=== PATIENT | male | born 1980 | race Caucasian/White ===

== ENCOUNTER 2024-04-23 12:26 | Inpatient (IN) | payer SELFPAY ==
[~2024-04-23] VITALS: Ht 193 cm; Wt 102.8 kg
[2024-04-23] MEDS ORDERED: iohexol 350MG/ML 100ml bottle IV ONE (12:46)
[2024-04-23 12:58] LABS: BASOPHILS % (AUTO) 0.3 % (0-1); EOSINOPHILS % (AUTO) 0 % (0-6); HEMATOCRIT 48.6 % (42.0-52.0); HEMOGLOBIN 16.6 g/dl (14.0-17.9); LYMPHOCYTES # (AUTO) 1.2 X10'3 (1.1-4.8); LYMPHOCYTES % (AUTO) 12.2 % (21-51); MEAN CORPUSCULAR HGB CONC 34.1 g/dL (33.0-36.5); MEAN CORPUSCULAR VOLUME 87.8 FL (78-98); MEAN PLATELET VOLUME 7.5 FL (7.4-10.4); MONOCYTES # (AUTO) 0.5 X10'3 (0-0.9); MONOCYTES % (AUTO) 4.7 % (2-12); NEUTROPHILS # (AUTO) 8.2 X10'3 (1.8-7.7); NEUTROPHILS % (AUTO) 82.8 % (42-75); PLATELET COUNT 290 X10'3 (140-440); RED BLOOD COUNT 5.54 X10'6 (4.70-6.10); RED CELL DISTRIBUTION WIDTH 13.1 % (11.5-14.5); WHITE BLOOD COUNT 9.9 X10'3 (4.5-11.0)
[2024-04-23 13:10] LABS: ANION GAP 9 (8-16); BLOOD UREA NITROGEN 10 MG/DL (7-18); CALCIUM 8.9 MG/DL (8.5-10.1); CHLORIDE 109 MMOL/L (99-107); CREATININE 0.91 MG/DL (0.60-1.10); GLUCOSE 142 MG/DL (70-104); POTASSIUM 4.8 MMOL/L (3.5-5.1); SODIUM 143 MMOL/L (135-145); TOTAL CARBON DIOXIDE 24.6 MMOL/L (24-32); eCRCL 126 ML/MIN; eGFR 90 ML/MIN
[2024-04-23 13:12] LABS: APTT 25 SECONDS (22-32); INR 1.1 INR; PROTHROMBIN TIME 11.1 SECONDS (9.0-12.0)
[2024-04-23] MEDS: dexamethasone 4mg/ml inj IV ONE (14:30)
[2024-04-23] MEDS: ringers solution, lacted 1,000 ML IV ONE ×2 (14:46→16:11)
[2024-04-23] MEDS: dexamethasone 4mg/ml inj IV SCH (14:46)
[2024-04-23] MEDS: ketorolac trometh 30MG/ML vial 30 MG/ML VIAL IV ONE (14:47)
[2024-04-23] MEDS: OLANZapine **IM** 10 mg inj. IM ONE (14:53)
[2024-04-23] MEDS: acetaminophen 325mg tablet PO ONE (16:11)
[2024-04-23] MEDS: valproate sod inj 500 MG in normal saline 50ml IV soln 50 ML IV ONE (16:54)
[2024-04-23] MEDS: magnesium sulf-water 2g/50mL 50 ML IV ONE (16:55)
[2024-04-23] MEDS ORDERED: ondansetron/PF 4mg/2ml inj IV PRN (18:05)
[2024-04-23] MEDS ORDERED: acetaminophen 325mg tablet PO PRN ×2 (18:05)
[2024-04-23] MEDS ORDERED: diphenhydrAMINE 50 mg/ml inj IV PRN (18:05)
[2024-04-23] MEDS ORDERED: acetaminophen 650mg rectal suppository RC PRN (18:05)
[2024-04-23] MEDS ORDERED: magnesium hydroxide 30ml (MOM) UD suspension PO PRN (18:05)
[2024-04-23] MEDS ORDERED: diphenhydrAMINE 25mg capsule PO PRN (18:05)
[2024-04-23] MEDS ORDERED: morphine 2 MG/ML inj. syringe IV PRN ×2 (18:05)
[2024-04-23] MEDS ORDERED: bisacodyl 10mg suppository rectal RC PRN (18:05)
[2024-04-23] MEDS ORDERED: ondansetron 4mg rapidly disintigrating tab PO PRN (18:05)
[2024-04-23] MEDS ORDERED: mag hydrox/Alum hydrox/simeth 30ml oral suspension PO PRN (18:05)
[2024-04-23] MEDS ORDERED: HYDROcodone/acetaminophen 5mg/325mg tablet PO PRN (18:05)
[2024-04-23 18:09] LABS: URINE AMPHETAMINE SCREEN NEGATIVE (Neg); URINE BARBITUATE SCREEN NEGATIVE (Neg); URINE BENZODIAZEPINES SCREEN NEGATIVE (Neg); URINE CANNABINOID SCREEN NEGATIVE (Neg); URINE COCAINE SCREEN NEGATIVE (Neg); URINE METHADONE SCREEN NEGATIVE (Neg); URINE OPIATE SCREEN NEGATIVE (Neg); URINE PHENCYCLIDINE SCREEN NEGATIVE (Neg)
[2024-04-23] MEDS ORDERED: haloperidol lactate 5mg/ml inj IM PRN (18:20)
[2024-04-23] MEDS ORDERED: LORazepam 2 mg/ml vial IV PRN (18:20)
[2024-04-23] MEDS ORDERED: haloperidol 5mg tablet PO PRN (18:20)
[2024-04-23] MEDS ORDERED: dextrose 50%-water 50ml dispensing syringe IV PRN (18:20)
[2024-04-23] MEDS ORDERED: LORazepam 1 MG tablet PO PRN (18:20)
[2024-04-23 18:21] LABS: BILIRUBIN,URINE NEGATIVE (Neg); CLARITY,URINE CLEAR (Clear); COLOR,URINE YELLOW (Yellow); GLUCOSE, URINE NEGATIVE (Neg); KETONES,URINE NEGATIVE (Neg); LEUKOCYTE ESTERASE ,URINE NEGATIVE (Neg); NITRITES, URINE NEGATIVE (Neg); OCCULT BLOOD,URINE NEGATIVE (Neg); PH,URINE 6.5 (4.8-8.0); PROTEIN,URINE NEGATIVE (Neg); UROBILINOGEN,URINE 0.2 E.U/dL (0.2-1.0)
[2024-04-23 18:25] LABS: UA COLLECTION TYPE VOIDED
[2024-04-23 18:54] LABS: APTT 24 SECONDS (22-32); HEMOGLOBIN A1C 5.2 % (4.5-6.2); INR 1.1 INR
[2024-04-23] MEDS: dextrose 5%-1/2 normal saline 1,000 ML IV SCH (19:00)
[2024-04-23 19:06] LABS: CREATINE KINASE 86 U/L (39-308); LIPASE 35 U/L (16-77); MAGNESIUM 2.1 MG/DL (1.5-2.4); PHOSPHORUS 1.8 MG/DL (2.3-4.5); PRO BRAIN NATRIURETIC PEPTIDE < 30 PG/ML (0-125); THYROID STIMULATING HORMONE 0.18 ulU/ml (0.34-4.50)
[2024-04-23 19:22] LABS: ETHANOL < 10 MG/DL (<10)
[2024-04-23] MEDS: heparin, porcine 5000 units/ml vial SQ SCH (20:00)
[2024-04-23] MEDS: docusate sod 100mg capsule PO SCH (20:00)
[2024-04-23] MEDS: thiamine 100mg/ml 2ml inj. IV SCH (20:17)
[2024-04-23] MEDS ORDERED: temazepam 15mg capsule PO PRN (21:00)
[2024-04-23] MEDS ORDERED: NO HOME MEDS (21:04)
[2024-04-24 00:50] VITALS: BP 139/84; PULSE 72; RESP 15; TEMP 97.8; O2SAT 97
[2024-04-24 06:00] VITALS: BP 138/78; PULSE 71; RESP 18; TEMP 97.8; O2SAT 99
[2024-04-24 06:38] LABS: BASOPHILS % (AUTO) 0.2 % (0-1); EOSINOPHILS % (AUTO) 0 % (0-6); HEMATOCRIT 43.7 % (42.0-52.0); HEMOGLOBIN 14.6 g/dl (14.0-17.9); LYMPHOCYTES # (AUTO) 1.5 X10'3 (1.1-4.8); LYMPHOCYTES % (AUTO) 15.4 % (21-51); MEAN CORPUSCULAR HEMOGLOBIN 29.6 PG (27.0-31.0); MEAN CORPUSCULAR HGB CONC 33.4 g/dL (33.0-36.5); MEAN CORPUSCULAR VOLUME 88.5 FL (78-98); MONOCYTES # (AUTO) 0.5 X10'3 (0-0.9); MONOCYTES % (AUTO) 5.2 % (2-12); NEUTROPHILS # (AUTO) 7.5 X10'3 (1.8-7.7); NEUTROPHILS % (AUTO) 79.2 % (42-75); PLATELET COUNT 258 X10'3 (140-440); RED BLOOD COUNT 4.94 X10'6 (4.70-6.10); RED CELL DISTRIBUTION WIDTH 13.5 % (11.5-14.5); WHITE BLOOD COUNT 9.5 X10'3 (4.5-11.0)
[2024-04-24 06:59] LABS: ALANINE AMINOTRANSFERASE 37 U/L (12-78); ALBUMIN 3.3 G/DL (3.4-5.0); ALBUMIN/GLOBULIN RATIO 1.1 (1.1-1.5); ALKALINE PHOSPHATASE 92 IU/L (46-116); ANION GAP 8 (8-16); ASPARTATE AMINO TRANSFERASE 9 U/L (10-37); BILIRUBIN,TOTAL 0.2 MG/DL (0.1-1.0); BLOOD UREA NITROGEN 9 MG/DL (7-18); BUN/CREATININE RATIO 11.7 (10.0-20.0); CALCIUM 8.2 MG/DL (8.5-10.1); CHLORIDE 113 MMOL/L (99-107); CHOL/HDL RATIO 3.8 (0.00-4.99); CHOLESTEROL 183 MG/DL (0-200); CREATININE 0.77 MG/DL (0.60-1.10); GLUCOSE 147 MG/DL (70-104); HDL CHOLESTEROL 48 MG/DL (35-60); LDL CHOLESTEROL 112 MG/DL (50-100); POTASSIUM 4.5 MMOL/L (3.5-5.1); SODIUM 145 MMOL/L (135-145); TOTAL CARBON DIOXIDE 23.7 MMOL/L (24-32); TOTAL PROTEIN 6.4 G/DL (6.4-8.2); TRIGLYCERIDES 115 MG/DL (20-135); eCRCL 149 ML/MIN; eGFR > 90 ML/MIN
[2024-04-24] MEDS: HYDROcodone/acetaminophen 10/325mg tab PO PRN (07:08)
[2024-04-24] MEDS: folic acid 1mg/0.2ml inj IV SCH (09:19)
[2024-04-24 10:00] VITALS: BP 148/95; PULSE 76; RESP 16; TEMP 97.3; O2SAT 97
[2024-04-24] MEDS ORDERED: Neutra Phos packet PO PRN (12:40)
[2024-04-24] MEDS ORDERED: sodium phosphate inj. 15 MMOL in dextrose 5%-water 250 ML IV PRN (12:40)
[2024-04-24] MEDS ORDERED: sodium phosphate inj. 30 MMOL in dextrose 5%-water 250 ML IV PRN (12:40)
[2024-04-24] MEDS ORDERED: LISI10TA27 PO (13:58)
[2024-04-24 14:29] VITALS: RESP 15
[2024-04-28] MEDS ORDERED: thiamine 100mg tablet PO SCH (08:00)
[2024-04-28] MEDS ORDERED: folic acid 1mg tablet PO SCH (08:00)
== END 2024-04-24 14:55 | disposition home or self-care (01) | DRG 78 ==
LOC: ER 12:29 → ED HOLD 18:11 → ORTHO 4S 04-24 00:50
PROVIDERS: ADMIT Family Medicine; ATTEND Family Medicine
DX: I67.4 Hypertensive encephalopathy (principal); F10.239 Alcohol dependence with withdrawal, unspecified; I16.1 Hypertensive emergency; R47.01 Aphasia; G43.909 Migraine, unspecified, not intractable, without status migrainosus; I10 Essential (primary) hypertension; Z88.8 Allergy status to other drugs, medicaments and biological substances
CPT/HCPCS: 36415; 70450; 70544; 70547; 70551; 71045; 80048; 80053; 80061; 80305; 80320; 81003; 82550; 82948; 83036; 83690; 83735; 83880; 84100; 84443; 84484; 85025; 85610; 85730; 87081; 92508; 92616; 93005; 97110; 97161; 97530; 99285; G0378; J1100; J1885; J3411; J3490; J7120; Q9967

== ENCOUNTER 2024-04-30 20:56 | Emergency (ER) | payer SELFPAY ==
[~2024-04-30] VITALS: Ht 185.4 cm; Wt 97.7 kg
[~2024-04-30 20:56] MED LIST: LISI10TA27 PO; NO HOME MEDS
[2024-04-30 22:07] LABS: BASOPHILS % (AUTO) 0.3 % (0-1); EOSINOPHILS % (AUTO) 0.1 % (0-6); HEMATOCRIT 45.8 % (42.0-52.0); HEMOGLOBIN 15.4 g/dl (14.0-17.9); LYMPHOCYTES # (AUTO) 1.3 X10'3 (1.1-4.8); MEAN CORPUSCULAR HEMOGLOBIN 29.5 PG (27.0-31.0); MEAN CORPUSCULAR HGB CONC 33.6 g/dL (33.0-36.5); MEAN CORPUSCULAR VOLUME 87.8 FL (78-98); MEAN PLATELET VOLUME 7.7 FL (7.4-10.4); MONOCYTES # (AUTO) 1.4 X10'3 (0-0.9); NEUTROPHILS # (AUTO) 8.9 X10'3 (1.8-7.7); NEUTROPHILS % (AUTO) 76.6 % (42-75); PLATELET COUNT 250 X10'3 (140-440); RED BLOOD COUNT 5.21 X10'6 (4.70-6.10); RED CELL DISTRIBUTION WIDTH 13.1 % (11.5-14.5); WHITE BLOOD COUNT 11.6 X10'3 (4.5-11.0)
[2024-04-30 22:32] LABS: ALANINE AMINOTRANSFERASE 36 U/L (12-78); ALBUMIN 3.6 G/DL (3.4-5.0); ALBUMIN/GLOBULIN RATIO 0.8 (1.1-1.5); ALKALINE PHOSPHATASE 96 IU/L (46-116); ANION GAP 4 (8-16); ASPARTATE AMINO TRANSFERASE 12 U/L (10-37); BILIRUBIN,TOTAL 0.5 MG/DL (0.1-1.0); BLOOD UREA NITROGEN 8 MG/DL (7-18); CALCIUM 8.8 MG/DL (8.5-10.1); CHLORIDE 104 MMOL/L (99-107); GLUCOSE 108 MG/DL (70-104); LIPASE 25 U/L (16-77); POTASSIUM 4.9 MMOL/L (3.5-5.1); PRO BRAIN NATRIURETIC PEPTIDE 36 PG/ML (0-125); SODIUM 138 MMOL/L (135-145); TOTAL CARBON DIOXIDE 30.5 MMOL/L (24-32); eCRCL 105 ML/MIN; eGFR 81 ML/MIN
[2024-04-30] MEDS: normal saline 1000ml 1,000 ML IV ONE (23:13)
[2024-04-30] MEDS: acetaminophen 1,000mg/100ml IV 100 ML IV ONE (23:13)
[2024-05-01 00:04] LABS: BILIRUBIN,URINE NEGATIVE (Neg); CLARITY,URINE CLEAR (Clear); COLOR,URINE YELLOW (Yellow); GLUCOSE, URINE NEGATIVE (Neg); KETONES,URINE TRACE mg/dl (Neg); LEUKOCYTE ESTERASE ,URINE NEGATIVE (Neg); NITRITES, URINE NEGATIVE (Neg); OCCULT BLOOD,URINE NEGATIVE (Neg); PROTEIN,URINE TRACE mg/dl (Neg)
[2024-05-01 00:09] LABS: UA COLLECTION TYPE URINAL
[2024-05-01 00:10] LABS: BACTERIA,URINE FEW /HPF (Neg); RBC,URINE NONE SEEN /HPF (0-2); SQUAMOUS EPITHELIAL CELL,UR FEW /LPF (FEW); WBC,URINE NONE SEEN /HPF (0-4)
[2024-05-01] MEDS ORDERED: AMLO10TA53 PO (00:29)
[2024-05-01] MEDS ORDERED: LIDO15SO9 PO (00:32)
[2024-05-01] MEDS: LIDOcaine 2% Viscous 15ml cup MM ONE (00:48)
[2024-05-01] MEDS: amLODIPine 5mg tablet PO ONE (00:49)
[2024-05-01] MEDS: ketorolac trometh 15mg/ml vial 15 MG/ML ML IV ONE (00:50)
[2024-05-01] MEDS: PENICILLIN IM ONE (00:56)
[2024-05-01 01:05] VITALS: BP 116/73; PULSE 98; RESP 16; TEMP 99.1; O2SAT 98
== END 2024-05-01 01:10 | disposition home or self-care (01) ==
LOC: ER 20:57
DX: I10 Essential (primary) hypertension (principal); J02.0 Streptococcal pharyngitis; Z20.822 Contact with and (suspected) exposure to COVID-19; Z88.8 Allergy status to other drugs, medicaments and biological substances
CPT/HCPCS: 36415; 80053; 81001; 83605; 83690; 83880; 84145; 84484; 85025; 87040; 87502; 87503; 87811; 93005; 96365; 96372; 96375; 99284; J0131; J0561; J1885; J7030; 81003